=== PATIENT | female | born 1990 | race African-American/Black ===

== ENCOUNTER 2016-04-26 20:53 | Emergency (ER) | payer OTHER ==
[2016-04-26 20:40] LABS: INFLUENZA A NEG (NEG); INFLUENZA B NEG (NEG)
== END 2016-04-26 21:30 | disposition home or self-care (01) ==
LOC: CFTX 20:53
PROVIDERS: Nurse Practitioner
DX: J06.9 Acute upper respiratory infection, unspecified (principal); F17.200 Nicotine dependence, unspecified, uncomplicated; Z90.49 Acquired absence of other specified parts of digestive tract
CPT/HCPCS: 87651; 87804; 99283